=== PATIENT | female | born 1990 | race Caucasian/White ===

== ENCOUNTER 2025-05-25 16:00 | Emergency (ER) | payer SELFPAY ==
[2025-05-25] MEDS ORDERED: diphenhydrAMINE 50 MG/ML VIAL ONE (18:11)
[2025-05-25] MEDS ORDERED: Ondansetron PF 4 MG/2 ML Vial ONE (18:11)
[2025-05-25] MEDS ORDERED: Metoclopramide HCl 10 MG (2 mL) VIAL ONE (18:11)
[2025-05-25 18:32] LABS: #Basophils Less than 0.03 10x3/uL (0.0-0.2); #Eosinophils Less than 0.03 10x3/uL (0.0-0.7); #Monocytes 0.05 10x3/uL (0.11-0.59); #Neutrophils 4.84 10x3/uL (1.40-6.50); %Basophils 0.3 % (0.0-1.0); %Eosinophils 0.3 % (0.0-10.0); %Lymphocytes 16.8 % (21.0-51.0); %Monocytes 0.8 % (0.0-10.0); %Neutrophils 80.8 % (42.0-75.0); Hematocrit 42.2 % (36.0-47.0); Hemoglobin 14.2 g/dL (12.0-16.0); Mean Corpuscular Hemoglobin 27.9 pg (27.0-31.0); Mean Corpuscular Volume 82.9 fL (78.0-98.0); Platelet Count 203 10x3/uL (130-400); Red Blood Cell (RBC) Count 5.09 mill/uL (4.20-5.40); White Blood Cell (WBC) Count 6.00 10x3/uL (4.8-10.8)
[2025-05-25 18:47] LABS: CAUTI Indications for Culture Dysuria,urgency,freq; Glucose, Urine (Dipstick) Greater than 1000 mg/dL (Negative); Leukocyte 250 Leu/uL (Negative); Protein, Urine (Dipstick) Negative (Neg-Trace); RBC/HPF Greater than 50 HPF (0-3); Specific Gravity, Urine 1.019 (1.002-1.036); WBC/HPF Greater than 50 HPF (0-3)
[2025-05-25 18:48] LABS: Bacteria/HPF 1+ HPF (None Seen)
[2025-05-25 18:49] LABS: Urine Culture Reflex Yes Yes
[2025-05-25 18:57] LABS: ALT (SGPT) 74 U/L (Less than 34); AST (SGOT) 31 U/L (11-34); Albumin 3.3 g/dL (3.1-4.5); Alkaline Phosphatase 198 U/L (40-110); Anion Gap 13 mmol/L (10-20); BUN (Urea Nitrogen) 7 mg/dL (7.0-18.7); Bilirubin, Total 0.5 mg/dL (0.3-1.2); Calc. Creatinine Clearance 0 mL/min (70-130); Calcium 8.8 mg/dL (7.8-10.44); Carbon Dioxide 21 mmol/L (22-29); Chloride 106 mmol/L (98-107); Globulin 3.3 g/dL (2.4-3.5); Glucose 192 mg/dL (70-105); Lipase 89 U/L (8-78); Potassium 3.7 mmol/L (3.5-5.1); Sodium 136 mmol/L (136-145)
== END 2025-05-25 20:33 | disposition home or self-care (01) ==
LOC: ERS 16:00
DX: N39.0 Urinary tract infection, site not specified (principal); R05.9 Cough, unspecified; R09.81 Nasal congestion; F17.210 Nicotine dependence, cigarettes, uncomplicated
CPT/HCPCS: 71045; 74177; 80053; 81001; 83690; 85025; 87086; 87428; 96374; 96375; J1200; J2405; J2765